=== PATIENT | female | born 2000 | race Two or more races ===

== ENCOUNTER 2024-05-15 19:37 | Emergency (ER) | payer MEDICAID, SELFPAY ==
[2024-05-15 19:51] VITALS: PULSE 102; RESP 18; O2SAT 98; BMI 19.8
--- NOTE | 2024-05-15 20:01 | EKG_ITS ---
[facility] Test Date: 2024-05-15 Pat Name: FLEX ADAMS Department: Room: - Gender: Female Counseling Services Manager: : 2000 Requested By: Julio Harding Order Number: [id number] Reading MD: Julio Harding Measurements Intervals [place] Rate: 91 P: 58 OK: 128 QRS: 33 QRSD: 89 T: -1 QT: 377 QTc: 465 Interpretive Statements SINUS RHYTHM WITH SINUS ARRHYTHMIA POSSIBLE RIGHT VENTRICULAR CONDUCTION DELAY [RSR (QR) IN V1/V2] No previous ECG available for comparison /[id number]/[email or web address]/[id number].pdf
[2024-05-15 20:12] VITALS: BP 125/66; PULSE 88; RESP 18; TEMP 36.6; O2SAT 99
--- NOTE | 2024-05-15 20:31 | EDNOTE_ITS ---
ED Chest Pain RME/HPI General Chief Complaint: Chest Pain Stated Complaint: CHEST WALL PAIN Time Seen by Provider: 05/15/24 20:19 Arrival date/time: 05/15/24 19:37 23F with history of anxiety presents to ED with 1 day of L chest wall pain w/o fall/trauma. Patient denies URI symptoms and SOB. Limitations: no limitations Related Data Allergies Allergy/AdvReac Type Severity Reaction Status Date / Time No Known Allergies Allergy Verified 05/15/24 19:55 Review of Systems Review of Systems Systems Reviewed: All systems reviewed, normal except as documented Constitutional Constitutional: Reports system reviewed and no additional complaints, except as documented, Denies fever(s) and Denies headache(s) ENT Ears, Nose, Mouth, and Throat: Denies disequilibrium and Denies headache(s) Cardiovascular Cardiovascular: Reports system reviewed and no additional complaints, except as documented, Reports as per HPI, Reports chest pain and Denies dyspnea Respiratory Respiratory: Reports system reviewed and no additional complaints, except as documented, Denies cough and Denies dyspnea Gastrointestinal Gastrointestinal: Reports system reviewed and no additional complaints, except as documented, Denies abdominal pain, Denies nausea and Denies vomiting Neurologic Neurologic: Reports system reviewed and no additional complaints, except as documented, Denies confusion, Denies disequilibrium and Denies headache(s) Psychiatric Psychiatric: Denies confusion Past Medical History Social History SMOKING STATUS: Never smoker ED Exam General Limitations: Present no limitations General appearance: Present alert and in no apparent distress Head Head exam: Present atraumatic Eye Eye exam: Present normal appearance, PERRL and EOMI ENT ENT exam: Present normal exam, normal oropharynx and mucous membranes moist Neck Neck exam: Present normal inspection, full ROM and trachea midline Chest Chest inspection: Present symmetric chest wall rise and tenderness (L) Respiratory Respiratory exam: Present normal lung sounds bilaterally Cardiovascular Cardiovascular exam: Present regular rate, normal rhythm and normal heart sounds Abdominal Exam Abdominal exam: Present soft and normal bowel sounds Extremities Exam Extremities exam: Present normal inspection and full ROM Back Exam Back exam: Present normal inspection and full ROM Neurological Exam Neurological exam: Present alert, oriented X3 and CN II-XII intact Psychiatric Psychiatric exam: Present normal affect and normal mood Skin Skin exam: Present warm, dry, intact and normal color Course Quality Measures none Orders Category Date Time Status EKG (ED ONLY) *Do not use* NOW Care 05/15/24 20:01 Completed EKG (ED Only) Stat Exams 05/15/24 20:01 Draft Vital Signs Vital signs: Vital Signs Temperature 98 F 05/15/24 20:12 Pulse Rate 88 05/15/24 20:12 Respiratory Rate 18 05/15/24 20:12 Blood Pressure 125/66 05/15/24 20:12 Pulse Oximetry (%) 99 05/15/24 20:12 Oxygen Delivery Method Room Air 05/15/24 20:12 O2 at 99% on RA and WNLs Chest Pain MDM Narrative MDM Narrative:: 23F with history of anxiety presents to ED with 1 day of L chest wall pain w/o fall/trauma. Patient denies URI symptoms and SOB. Physical exam reveals L chest wall tenderness, but clear lungs and RRR. Patient is afebrile, alert, but mildly anxious. EKG is NSR. Patient data External records reviewed:: None Clinical information provided by:: patient Social determinants that could affect healthcare access:: mental health Patient has the following chronic illnesses:: anxiety How is presenting disease/condition affected by chronic disease/condition?: exacerbated by Evaluation data The following diagnostics were reviewed and interpreted by me:: EKG tracing(s) Lab and/or radiology exams considered but not ordered:: ordered Interpretation Summary: above Medications / Prescriptions Medications or Prescriptions considered but not ordered:: not ordered Medication administrations:: n/a Consultations Consultation(s) initiated? (list below): No Diagnosis Chest Pain Differential Diagnosis: fracture of rib, pneumothorax, stable angina, unstable angina pectoris, atypical chest pain, st elevation myocardial infarction, costochondritis, chest pain and biliary colic Most likely diagnosis given after review of the tests above:: costochondritis Admission Indicated Admission indicated?: not indicated Admission Request Was there a request for admission?: No Disposition Plan Disposition Plan: Discharge Discharge Attestation Discharge Attestation: The patient and all family members were given an opportunity to ask questions and understood the discharge instructions. Discharge instructions specifically effects, indications for sooner follow up or return to the emergency department, and the expected course of current diagnosis. Patient condition: Stable Discharge Plan Plan Patient Disposition: HOME (Self Care) Disposition Comment: Stable Problem List Clinical Impression: Costochondritis Patient/Caregiver Discharge Instructions Education Materials: ED Chest Wall Pain, Costochondritis Additional Instructions: Please follow-up with PCP within 24-48 hours and return immediately if symptoms worsen. Print Language: Persian Stand Alone Forms: Patient Portal Info Letter PA/NEURODIAGNOSTIC TECHNICIAN Supervising Physician PA/NEURODIAGNOSTIC TECHNICIAN Supervising Physician: Dr. Jacinto
== END 2024-05-15 20:25 | disposition home or self-care (01) ==
PROVIDERS: Emergency Provider Emergency Medicine; PCP Physician Assistant
DX: M94.0 Chondrocostal junction syndrome [Tietze] (principal)
CPT/HCPCS: 93005; 99283

== ENCOUNTER 2024-06-29 12:32 | Emergency (ER) | payer MEDICAID, SELFPAY ==
[2024-06-29 12:33] VITALS: BMI 20.4
[2024-06-29 13:49] VITALS: BP 118/77; PULSE 97; RESP 18; TEMP 37.2; O2SAT 97
--- NOTE | 2024-06-29 13:59 | XR_ITS ---
Examination: PA lateral chest 2 views TECHNIQUE: Upright PA lateral chest 2 views Exam date and time: June 29, 2024 1436 hours Comparison August 30, 2009 INDICATIONS: Coughing lower back pain chest pain today. FINDINGS: Normal heart size. Lungs are clear. The osseous structures are intact IMPRESSION: No active disease
--- NOTE | 2024-06-29 14:11 | PD.EDURI ---
Upper Respiratory Inf. RME/HPI General Chief Complaint: Abdominal Pain Stated Complaint: COUGH, UPPER BACK PAIN TODAY Time Seen by Provider: 06/29/24 13:54 Source: patient Arrival date/time: 06/29/24 12:32 This is a 23-year-old female who presents to the emergency department with complaints of upper back pain associated with cough. Patient does report that 2 days ago she began with bodyaches joint pain fever and cough. Patient did not attempt any interventions or take any OTC medications prior to ED visit. Patient denies any other associated symptoms or aggravating factors. No modifying factors, no radiation, no migration. Limitations: no limitations Related Data Previous Rx's ?Medication ?Instructions ?Recorded acetaminophen 325 mg tablet (Pain 650 mg (2 x 325 mg) PO QID PRN 06/29/24 Relief (acetaminophen)) fever or pain #20 tabs promethazine-DM 6.25 mg-15 mg/5 mL 5 ml PO Q6H PRN cough #118 mL 06/29/24 oral syrup Allergies Allergy/AdvReac Type Severity Reaction Status Date / Time No Known Allergies Allergy Verified 06/29/24 12:35 Review of Systems Review of Systems Systems Reviewed: All systems reviewed, normal except as documented Narrative Review of Systems: Gen: Positive fever, no chills, no weight loss EYES: No discharge, no visual changes, no pain HEENT: No ear pain, no congestion, no sore throat PULM: No shortness of breath, positive cough, no congestion CV: No chest pain, no dyspnea on exertion, no palpitations GI: No nausea, no vomiting, no diarrhea, no pain, no constipation : No frequency, no urgency,? no dysuria Musc/skel: No joint pain, no back pain Skin: No rash? ED Exam General Limitations: Present no limitations General appearance: Present alert and in no apparent distress Head Head exam: Present atraumatic Eye Eye exam: Present normal appearance, PERRL and EOMI ENT ENT exam: Present normal exam, normal oropharynx and mucous membranes moist Neck Neck exam: Present normal inspection, full ROM and trachea midline Chest Chest inspection: Present normal inspection and symmetric chest wall rise Respiratory Respiratory exam: Present normal lung sounds bilaterally Cardiovascular Cardiovascular exam: Present regular rate, normal rhythm and normal heart sounds Abdominal Exam Abdominal exam: Present soft and normal bowel sounds Extremities Exam Extremities exam: Present normal inspection and full ROM Back Exam Back exam: Present normal inspection and full ROM Neurological Exam Neurological exam: Present alert, oriented X3 and CN II-XII intact Psychiatric Psychiatric exam: Present normal affect and normal mood Skin Skin exam: Present warm, dry, intact and normal color Course Quality Measures none Orders Category Date Time Status Bedside COVID-19 Antigen Test NOW Care 06/29/24 13:59 Completed Bedside Influenza A&B Antigen Test NOW Care 06/29/24 13:59 Completed XR chest 2V Stat Exams 06/29/24 13:59 Completed HCG Qualitative,Urine Stat Lab 06/29/24 14:00 Completed UA [Urinalysis] Stat Lab 06/29/24 14:00 Completed Vital Signs Vital signs: Vital Signs Temperature 99 F 06/29/24 13:49 Pulse Rate 97 06/29/24 13:49 Respiratory Rate 18 06/29/24 13:49 Blood Pressure 118/77 06/29/24 13:49 Pulse Oximetry (%) 97 06/29/24 13:49 Oxygen Delivery Method Room Air 06/29/24 13:49 Upper Respiratory Infection Patient data External records reviewed:: [facility] previous records Clinical information provided by:: patient Social determinants that could affect healthcare access:: none Patient has the following chronic illnesses:: no How is presenting disease/condition affected by chronic disease/condition?: no chronic disease Evaluation data The following diagnostics were reviewed and interpreted by me:: lab results and radiology exam(s) Lab and/or radiology exams considered but not ordered:: no Interpretation Summary: Examination: PA lateral chest 2 views TECHNIQUE: Upright PA lateral chest 2 views Exam date and time: June 29, 2024 1436 hours Comparison August 30, 2009 INDICATIONS: Coughing lower back pain chest pain today. FINDINGS: Normal heart size. Lungs are clear. The osseous structures are intact IMPRESSION: No active disease Medications / Prescriptions Medications or Prescriptions considered but not ordered:: All medications administered and effective Medication administrations:: no Consultations Consultation(s) initiated? (list below): No Diagnosis Upper Respiratory Differential Diagnosis: upper respiratory infection, viral infection, bronchitis, influenza and pharyngitis Most likely diagnosis given after review of the tests above:: Viral infection Admission Indicated Admission indicated?: not indicated Admission Request Was there a request for admission?: No Disposition Plan Disposition Plan: Discharge Discharge Attestation Discharge Attestation: The patient and all family members were given an opportunity to ask questions and understood the discharge instructions. Discharge instructions specifically effects, indications for sooner follow up or return to the emergency department, and the expected course of current diagnosis. Patient condition: Stable Discharge Plan Plan Patient Disposition: HOME (Self Care) Patient condition on transfer: Stable Prescriptions/Referrals Prescriptions/Med Rec: New acetaminophen [Pain Relief (acetaminophen)] 325 mg tablet 650 mg PO QID PRN (Reason: fever or pain) Qty: 20 0RF promethazine-DM 6.25-15 mg/5 mL syrup 5 ml PO Q6H PRN (Reason: cough) Qty: 118 0RF Referrals: Александр Camarena [Primary Care Provider] - In 1 week Problem List Clinical Impression: Acute viral syndrome Patient/Caregiver Discharge Instructions Discharge Activity: activity as tolerated Education Materials: ED Viral Syndrome (Adult) Additional Instructions: - Medication sent to the pharmacy cough syrup Tylenol antiemetic -These make a follow-up appointment with your primary doctor for follow-up care -Your chest x-ray was negative for any acute pneumonia. If there is any worsening symptoms or change in condition please return to the emergency department soon as possible. Print Language: St Helen[place] Stand Alone Forms: Lupe Award Info., Patient Portal Info Letter PA/GAS TURBINE MECHANIC Supervising Physician PA/TANG Supervising Physician: Dr Hensley
[2024-06-29 14:31] LABS: Collection Type, Urine Clean Catch
[2024-06-29 14:37] LABS: HCG Qualitative,Urine Negative
[2024-06-29 15:12] LABS: Bacteria,Urine Rare; Bilirubin,Urine Negative (Negative); Blood,Urine 3+ (Negative); Clarity,Urine Clear (Clear/Hazy); Color,Urine Lt-Yellow (Lt Yel-Yel); Glucose, Urine Negative (Negative); Ketones,Urine Negative (Negative); Leukocyte Esterase,Urine Negative (Negative); Nitrite,Urine Negative (Negative); Protein,Urine Negative (Neg - Trace); RBC,Urine 3 /hpf (0-3); Specific Gravity,Urine 1.023 (1.001-1.035); Squamous Epithelial Cell,Urine 7 /hpf (0-5); Urobilinogen,Urine Negative mg/dL (0.0-1.0); WBC,Urine 2 /hpf (0-5)
== END 2024-06-29 17:30 | disposition home or self-care (01) ==
PROVIDERS: Nurse Practitioner Primary Care; Emergency Provider Emergency Medicine; PCP Physician Assistant
DX: B34.9 Viral infection, unspecified (principal); R05.9 Cough, unspecified; M54.50 Low back pain, unspecified; R07.9 Chest pain, unspecified
CPT/HCPCS: 71046; 81001; 81025; 87400; 87811; 99283

== ENCOUNTER → 2025-01-12 | Outpatient (CLI) | payer MEDICAID, SELFPAY ==
--- NOTE | 2025-01-12 16:43 | XR_ITS ---
Examination: CT maxillofacial, without intravenous contrast. 2-D sagittal reconstructions. 3-D reconstructions. Date and time of exam:2024, 6 hours INDICATIONS: Sinus pressure and pain four months CTDI: vol (mGy):6.68 DLP: (mGycm):93.5. Technique: Multiple axial images of maxillofacial region, 3.0 mm slice thickness. 2-D sagittal and coronal reconstructions. 3-D reconstructions. Low dose protocols were performed. One or more of the following dose reduction techniques were used; automated exposure control, adjustment of the mA and/or KV according to patient size, use of iterative reconstruction technique. Findings: Minimal mucosal thickening involving the frontal air cells Mild mucosal thickening ethmoid air cells. 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
== END | disposition home or self-care (01) ==
PROVIDERS: PCP Physician Assistant; Referring Provider Physician Assistant; Visit Provider Physician Assistant
DX: J34.3 Hypertrophy of nasal turbinates (principal); J32.8 Other chronic sinusitis
CPT/HCPCS: 70486